=== PATIENT | female | born 1950 | race Caucasian/White ===

== ENCOUNTER 2016-06-22 10:10 | Outpatient (CLI) | payer MEDICARE ==
[2016-06-22 11:52] LABS: #Basophils 0.1 thou/uL (0.0-0.2); #Eosinphils 0.2 thou/uL (0.0-0.7); #Lymphocytes 1.4 thou/uL (1.20-3.40); #Monocytes 0.3 thou/uL (0.11-0.59); %Basophils 1.3 % (0.0-1.0); %Eosinophils 3.1 % (0.0-10.0); %Monocytes 6.9 % (0.0-10.0); Hematocrit 42.3 % (36.0-47.0); Mean Platelet Volume 8.4 fL (7.4-10.4); Red Blood Cell (RBC) Count 4.83 mill/uL (4.20-5.40)
[2016-06-22 11:59] LABS: ALT (SGPT) 18 U/L (0-55); AST (SGOT) 17 U/L (5-34); Alkaline Phosphatase 94 U/L (40-150); Anion Gap 15 mmol/L (10-20); BUN (Urea Nitrogen) 15 mg/dL (9.8-20.1); Calc. Creatinine Clearance 0 mL/min (70-130); Calcium 9.3 mg/dL (7.8-10.44); Carbon Dioxide 29 mmol/L (23-31); Chloride 104 mmol/L (98-107); Estimated GFR-MDRD 81; Globulin 2.7 g/dL (2.4-3.5); LDL Cholesterol, Calculated 158 mg/dL
== END 2016-06-22 10:11 | disposition home or self-care (01) ==
LOC: HPCALD 10:10
PROVIDERS: ATTEND Family Medicine
DX: Z13.6 Encounter for screening for cardiovascular disorders (principal); G35 Multiple sclerosis
CPT/HCPCS: 36415; 80053; 80061; 85025

== ENCOUNTER 2016-09-16 15:20 | Outpatient (CLI) | payer MEDICARE ==
[2016-09-16 15:53] LABS: #Basophils 0.1 thou/uL (0.0-0.2); #Eosinphils 0.2 thou/uL (0.0-0.7); #Lymphocytes 1.5 thou/uL (1.20-3.40); #Monocytes 0.5 thou/uL (0.11-0.59); #Neutrophils 3.3 thou/uL (1.40-6.50); %Eosinophils 3.5 % (0.0-10.0); %Lymphocytes 27.7 % (21.0-51.0); %Monocytes 8.9 % (0.0-10.0); Hemoglobin 12.3 g/dL (12.0-16.0); Mean Corpuscular HGB CONC 33.6 g/dL (32.0-36.0); Mean Corpuscular Hemoglobin 29.5 pg (27.0-31.0); Mean Corpuscular Volume 87.7 fl (81.0-99.0); Mean Platelet Volume 8.7 fL (7.4-10.4); Platelet Count 218 thou/uL (130-400); RBC Distribution Width 12.4 % (11.5-14.5); Red Blood Cell (RBC) Count 4.19 mill/uL (4.20-5.40); White Blood Cell (WBC) Count 5.6 thou/uL (4.8-10.8)
[2016-09-16 16:55] LABS: ALT (SGPT) 22 U/L (8-55); AST (SGOT) 20 U/L (5-34); Albumin 4.2 g/dL (3.4-4.8); Alkaline Phosphatase 94 U/L (40-150); Anion Gap 17 mmol/L (10-20); BUN (Urea Nitrogen) 15 mg/dL (9.8-20.1); Bilirubin, Total 0.7 mg/dL (0.2-1.2); Calc. Creatinine Clearance 0 mL/min (70-130); Calcium 9.4 mg/dL (7.8-10.44); Carbon Dioxide 28 mmol/L (23-31); Chloride 103 mmol/L (98-107); Estimated GFR-MDRD 88; Globulin 2.6 g/dL (2.4-3.5); Glucose 68 mg/dL (80-115); Protein, Total 6.8 g/dL (6.0-8.3); Sodium 144 mmol/L (136-145)
--- NOTE | 2016-09-16 17:35 | RAD ---
CHEST TWO VIEWS 09/16/16 Comparison is made with an 04/05/10 study done at [facility]. The heart is normal in size and the lungs are clear. No infiltrate or effusion was seen. There is no sign of pneumonia. The mediastinum appears normal and the trachea is midline. The bony structures s how no acute change. IMPRESSION: No acute thoracic finding. POS: [facility]
[2016-09-17 12:56] LABS: Bilirubin Negative (Negative); Blood, Urine Trace (Negative); Clarity Clear (Clear); Glucose, Urine (Dipstick) Negative (Negative); Leukocyte Negative (Negative); Nitrite Negative (Negative); Protein, Urine (Dipstick) Negative (Neg-Trace); Urobilinogen 0.2 mg/dL (0.2-1.0); pH, Urine 5.5 (5.0-9.0)
[2016-09-17 13:01] LABS: Bacteria/HPF None Seen HPF (None Seen); Other Microscopic Description C&S SET UP; RBC/HPF 0-3 HPF (0-3); Squamous Epithelial 0-3 HPF (0-3); WBC/HPF None Seen HPF (0-3)
== END 2016-09-16 15:21 | disposition home or self-care (01) ==
LOC: BURRAD 15:20
PROVIDERS: ATTEND Student in an Organized Health Care Education/Training Program
DX: G35 Multiple sclerosis (principal); R53.1 Weakness
CPT/HCPCS: 36415; 71020; 80053; 81001; 85025; 87086

== ENCOUNTER 2016-10-04 12:14 | Outpatient (CLI) | payer MEDICARE ==
--- NOTE | 2016-10-04 15:46 | RAD ---
LEFT HIP TWO VIEW 10/04/16 HISTORY: Left hip pain for 2-3 months. History of falls. COMPARISON: None. FINDINGS: There is moderate to severe narrowing of the left hip joint with erosions of the acetabulum and femo ral head, ring osteophytes and an effusion. No acute fracture or malalignment. IMPRESSION: Moderate to severe osteoarthritic disease of the left hip. POS: [facility]
--- NOTE | 2016-10-04 15:46 | RAD ---
RIGHT HIP TWO VIEWS: History: 66-year-old female with right hip pain for several months. History of multiple falls. History of MS. FINDINGS: Severe right hip joint arthrosis is noted with marked hip joint space narrowing and sclerosis and ex tensive hypertrophic osteophytosis with some flattening and deformity of the humeral head and acetab ulum but no acute fracture or dislocation. IMPRESSION: Marked right hip joint arthrosis. No acute fracture. POS: [facility]
== END 2016-10-04 12:15 | disposition home or self-care (01) ==
LOC: BURRAD 12:14
PROVIDERS: ATTEND Family Medicine
DX: M25.552 Pain in left hip (principal); M25.551 Pain in right hip; M16.0 Bilateral primary osteoarthritis of hip

== ENCOUNTER 2016-10-15 20:00 | Emergency (ER) | payer MEDICARE ==
[2016-10-15] MEDS ORDERED: Ondansetron ODT 4 MG TAB ONE (20:13)
[2016-10-15 20:44] LABS: #Basophils 0.1 thou/uL (0.0-0.2); #Eosinphils 0.1 thou/uL (0.0-0.7); #Lymphocytes 1.3 thou/uL (1.20-3.40); #Monocytes 0.4 thou/uL (0.11-0.59); #Neutrophils 4.6 thou/uL (1.40-6.50); %Basophils 1.3 % (0.0-1.0); %Lymphocytes 19.5 % (21.0-51.0); %Monocytes 5.8 % (0.0-10.0); %Neutrophils 71.5 % (42.0-75.0); Hemoglobin 12.3 g/dL (12.0-16.0); Mean Corpuscular HGB CONC 33.3 g/dL (32.0-36.0); Mean Corpuscular Hemoglobin 28.6 pg (27.0-31.0); Mean Corpuscular Volume 85.9 fl (81.0-99.0); Mean Platelet Volume 7.7 fL (7.4-10.4); Platelet Count 232 thou/uL (130-400); RBC Distribution Width 11.8 % (11.5-14.5); White Blood Cell (WBC) Count 6.4 thou/uL (4.8-10.8)
[2016-10-15 20:47] LABS: Bilirubin Negative (Negative); Clarity Clear (Clear); Glucose, Urine (Dipstick) Negative (Negative); Leukocyte Negative (Negative); Nitrite Negative (Negative); Protein, Urine (Dipstick) Negative (Neg-Trace); Urobilinogen 0.2 mg/dL (0.2-1.0); pH, Urine 5.5 (5.0-9.0)
[2016-10-15 20:48] LABS: Blood, Urine Trace (Negative)
[2016-10-15 20:54] LABS: Bacteria/HPF Rare-Few HPF (None Seen); Crystals/HPF 1+ AMORPH URATES HPF (Negative); RBC/HPF 0-3 HPF (0-3); Squamous Epithelial 0-3 HPF (0-3); WBC/HPF 0-3 HPF (0-3)
[2016-10-15 20:57] LABS: ALT (SGPT) 13 U/L (8-55); AST (SGOT) 12 U/L (5-34); Alkaline Phosphatase 97 U/L (40-150); Anion Gap 17 mmol/L (10-20); BUN (Urea Nitrogen) 17 mg/dL (9.8-20.1); Bilirubin, Total 0.8 mg/dL (0.2-1.2); Calc. Creatinine Clearance 0 mL/min (70-130); Calcium 9.5 mg/dL (7.8-10.44); Carbon Dioxide 26 mmol/L (23-31); Chloride 99 mmol/L (98-107); Estimated GFR-MDRD 90; Globulin 3.3 g/dL (2.4-3.5); Glucose 124 mg/dL (80-115); Lipase 11 U/L (8-78); Potassium 4.6 mmol/L (3.5-5.1); Protein, Total 7.3 g/dL (6.0-8.3); Sodium 137 mmol/L (136-145)
[2016-10-15 20:58] LABS: Troponin I Less than 0.010 ng/mL (< 0.028)
--- NOTE | 2016-10-15 23:18 | RAD ---
PORTABLE CHEST 10/15/16 An AP portable film at 2025 is compared with an 04/05/10 study done at [facility]. The heart is normal in size and the lungs are clear. No infiltrate, effusion, edema, or other acute pulmonary findings were encountered. The mediastinum appears normal and the trachea is midline. IMPRESSION: No significant thoracic finding. POS: [facility]
== END 2016-10-15 21:10 | disposition home or self-care (01) ==
LOC: BURERS 20:00
DX: R11.0 Nausea (principal); T40.4X5A Adverse effect of other synthetic narcotics, initial encounter; M79.9 Soft tissue disorder, unspecified; Z79.899 Other long term (current) drug therapy
CPT/HCPCS: 36415; 51701; 71010; 80053; 81003; 81015; 82553; 83605; 83690; 84484; 85025; 93005; 94760; A4353; Q0162

== ENCOUNTER 2016-12-20 11:12 | Inpatient (IN) | payer MEDICARE ==
[2016-12-21] MEDS ORDERED: HYDROcodone/Acetaminophen 7.5/325 mg Tablet PO PRN (20:55)
[2016-12-21 21:02] VITALS: BMI 21.6
[2016-12-21] MEDS ORDERED: Milk Of Magnesia 30 ML UDCUP PO PRN (21:05)
[2016-12-21] MEDS ORDERED: IMITREX 50 MG PO PRN (21:10)
[2016-12-22] MEDS: Ondansetron ODT 4 MG TAB PO PRN ×2 (03:05→18:03)
[2016-12-22] MEDS: Aspirin 325 MG TAB PO SCH ×2 (08:14→18:04)
[2016-12-22] MEDS: Multivitamin W/ Minerals 1 TAB PO SCH (08:14)
[2016-12-22] MEDS: Docusate 100 MG CAP PO SCH ×2 (08:14→21:14)
[2016-12-22] MEDS: HYDROcodone/Acetaminophen 7.5/325 mg Tablet PO PRN ×3 (10:03→19:44)
[2016-12-22] MEDS: COPAXONE 20 MG/ML SC SCH (21:14)
[2016-12-23] MEDS: Aspirin 325 MG TAB PO SCH ×2 (08:15→17:11)
[2016-12-23] MEDS: Docusate 100 MG CAP PO SCH ×2 (08:16→20:20)
[2016-12-23] MEDS: Multivitamin W/ Minerals 1 TAB PO SCH (08:16)
[2016-12-23] MEDS: HYDROcodone/Acetaminophen 7.5/325 mg Tablet PO PRN (08:24)
[2016-12-23] MEDS: Ondansetron ODT 4 MG TAB PO PRN (11:06)
[2016-12-23] MEDS ORDERED: Magnesium Citrate 300 ML BOT PO SCH (17:15)
[2016-12-23] MEDS: COPAXONE 20 MG/ML SC SCH (20:19)
[2016-12-24] MEDS: Multivitamin W/ Minerals 1 TAB PO SCH (11:54)
[2016-12-24] MEDS: Aspirin 325 MG TAB PO SCH ×2 (14:37→18:18)
[2016-12-24] MEDS: Docusate 100 MG CAP PO SCH ×2 (14:37→21:25)
[2016-12-24] MEDS: Ondansetron ODT 4 MG TAB PO PRN (18:40)
[2016-12-24] MEDS: COPAXONE 20 MG/ML SC SCH (21:10)
--- NOTE | 2016-12-24 21:34 | RAD ---
EXAM: ONE VIEW CHEST ABDOMEN TWO VIEWS 12/24/16 HISTORY: Nausea, constipation. FINDINGS: ONE VIEW CHEST: Normal cardiac silhouette. Pulmonary vessels and hilum are normal. No masses or consolidation. No pn eumothorax or osseous abnormality. ABDOMEN TWO VIEWS: Scattered, moderate fecal material throughout the colon. Correlate for possible constipation. No def inite small bowel obstruction. No pneumoperitoneum. No differential air fluid levels. IMPRESSION: 1. No acute cardiopulmonary process. 2. Moderate fecal material in the colon, correlate for constipation. POS: [facility]
[2016-12-25] MEDS ORDERED: Magnesium Citrate 300 ML BOT PO SCH (08:30)
[2016-12-25] MEDS: Multivitamin W/ Minerals 1 TAB PO SCH (08:54)
[2016-12-25] MEDS: Aspirin 325 MG TAB PO SCH (08:54)
[2016-12-25] MEDS: Docusate 100 MG CAP PO SCH ×2 (08:54→17:48)
[2016-12-25] MEDS ORDERED: Magnesium Citrate 300 ML BOT PO PRN (20:30)
[2016-12-25] MEDS: COPAXONE 20 MG/ML SC SCH (21:35)
[2016-12-26] MEDS: HYDROcodone/Acetaminophen 7.5/325 mg Tablet PO PRN (07:06)
[2016-12-26] MEDS: Multivitamin W/ Minerals 1 TAB PO SCH (08:19)
[2016-12-26] MEDS: Aspirin 325 MG TAB PO SCH ×2 (08:19→16:19)
[2016-12-26] MEDS: Docusate 100 MG CAP PO SCH ×2 (12:29→20:32)
[2016-12-26] MEDS ORDERED: Lorazepam 0.5 MG TAB PO PRN (17:32)
[2016-12-26] MEDS ORDERED: Triple Antibiotic Oint 1 GM Packet TOP PRN (17:40)
[2016-12-26] MEDS: Enoxaparin Sodium 40 MG/0.4 ML SYRINGE SC SCH (18:08)
[2016-12-26] MEDS: COPAXONE 20 MG/ML SC SCH (20:33)
[2016-12-26] MEDS: HYDROcodone/Acetaminophen 5/325 mg Tablet PO PRN (20:34)
[2016-12-26] MEDS ORDERED: Triple Antibiotic Oint 1 GM Packet TOP SCH (21:00)
[2016-12-27] MEDS: HYDROcodone/Acetaminophen 5/325 mg Tablet PO PRN ×2 (05:41→10:16)
[2016-12-27] MEDS ORDERED: Enoxaparin Sodium 40 MG/0.4 ML SYRINGE SC SCH (06:00)
[2016-12-27] MEDS: Docusate 100 MG CAP PO SCH ×2 (09:21→20:50)
[2016-12-27] MEDS: Lisinopril 5 MG TAB PO SCH (09:22)
[2016-12-27] MEDS: Multivitamin W/ Minerals 1 TAB PO SCH (09:24)
[2016-12-27] MEDS: Enoxaparin Sodium 40 MG/0.4 ML SYRINGE SC SCH (17:18)
[2016-12-27] MEDS: COPAXONE 20 MG/ML SC SCH (20:50)
[2016-12-28] MEDS: HYDROcodone/Acetaminophen 5/325 mg Tablet PO PRN (00:07)
[2016-12-28] MEDS: Polyethylene Glycol 3350 17 GM Packet PO SCH (08:53)
[2016-12-28] MEDS: Docusate 100 MG CAP PO SCH ×2 (08:54→20:53)
[2016-12-28] MEDS: Lisinopril 5 MG TAB PO SCH (08:54)
[2016-12-28] MEDS: Multivitamin W/ Minerals 1 TAB PO SCH (08:54)
[2016-12-28 10:19] LABS: Bilirubin Negative (Negative); Blood, Urine Trace (Negative); Clarity Clear (Clear); Glucose, Urine (Dipstick) Negative (Negative); Leukocyte Negative (Negative); Nitrite Negative (Negative); Protein, Urine (Dipstick) Negative (Neg-Trace); Urobilinogen 0.2 mg/dL (0.2-1.0)
[2016-12-28 10:20] LABS: Bacteria/HPF 1+ HPF (None Seen); RBC/HPF 0-3 HPF (0-3); Squamous Epithelial 0-3 HPF (0-3); WBC/HPF 0-3 HPF (0-3)
[2016-12-28] MEDS: Acetaminophen 325 MG TAB PO PRN (13:03)
[2016-12-28] MEDS: Enoxaparin Sodium 40 MG/0.4 ML SYRINGE SC SCH (17:22)
[2016-12-28] MEDS: COPAXONE 20 MG/ML SC SCH (20:57)
[2016-12-29] MEDS: Docusate 100 MG CAP PO SCH ×2 (08:38→21:06)
[2016-12-29] MEDS: Multivitamin W/ Minerals 1 TAB PO SCH (08:39)
[2016-12-29] MEDS: Lisinopril 5 MG TAB PO SCH (08:39)
[2016-12-29] MEDS: Polyethylene Glycol 3350 17 GM Packet PO SCH (08:39)
[2016-12-29] MEDS: Enoxaparin Sodium 40 MG/0.4 ML SYRINGE SC SCH (18:23)
[2016-12-29] MEDS ORDERED: Insulin Regular 300 UNITS/3 ML VIAL ONE (20:43)
[2016-12-29] MEDS: COPAXONE 20 MG/ML SC SCH (21:06)
[2016-12-29] MEDS: Acetaminophen 325 MG TAB PO PRN (21:06)
[2016-12-30 06:20] VITALS: TEMP 98.2
[2016-12-30] MEDS: Docusate 100 MG CAP PO SCH (08:23)
[2016-12-30] MEDS: Lisinopril 5 MG TAB PO SCH (08:23)
[2016-12-30] MEDS: Polyethylene Glycol 3350 17 GM Packet PO SCH (08:24)
[2016-12-30] MEDS: Multivitamin W/ Minerals 1 TAB PO SCH (08:24)
[2016-12-30 08:27] VITALS: BP 133/61
[2016-12-31] MEDS ORDERED: Aspirin 325 MG TAB PO SCH (09:00)
== END 2016-12-30 10:55 | disposition home health service (06) | DRG 561 ==
LOC: BURMED 12-21 20:07
PROVIDERS: ADMIT Family Medicine; ATTEND Family Medicine
DX: Z47.1 Aftercare following joint replacement surgery (principal); I10 Essential (primary) hypertension; Z96.642 Presence of left artificial hip joint; Z23 Encounter for immunization; K59.00 Constipation, unspecified; F41.9 Anxiety disorder, unspecified; R11.0 Nausea
CPT/HCPCS: 74022; 81001; 87086; 90471; 90732; G0009; G8978-GP-CK; G8979-GP-CI; G8987-GO-CJ; G8988-GO-CI; J1650; J1815; Q0162

== ENCOUNTER 2017-01-12 15:47 | Emergency (ER) | payer MEDICARE | END 2017-01-12 16:17 | disposition home or self-care (01) | LOC: BURERS 15:47 | DX: S06.0X0A Concussion without loss of consciousness, initial encounter (principal); I10 Essential (primary) hypertension; G35 Multiple sclerosis; W18.31XA Fall on same level due to stepping on an object, initial encounter | CPT/HCPCS: 99283 ==

== ENCOUNTER 2019-10-21 20:26 | Emergency (ER) | payer MEDICARE ==
[2019-10-21] MEDS ORDERED: Ondansetron PF 4 MG/2 ML Vial ONE (21:01)
[2019-10-21] MEDS ORDERED: diphenhydrAMINE 50 MG/ML VIAL ONE (21:01)
[2019-10-21 21:02] LABS: #Basophils 0.1 thou/uL (0.0-0.2); #Lymphocytes 1.1 thou/uL (1.20-3.40); #Monocytes 0.7 thou/uL (0.11-0.59); #Neutrophils 16.2 thou/uL (1.40-6.50); %Basophils 0.5 % (0.0-1.0); %Eosinophils 0.1 % (0.0-10.0); %Monocytes 4.1 % (0.0-10.0); %Neutrophils 89.4 % (42.0-75.0); Hemoglobin 13.7 g/dL (12.0-16.0); Mean Corpuscular HGB CONC 31.5 g/dL (32.0-36.0); Mean Corpuscular Hemoglobin 28.7 pg (27.0-31.0); Mean Corpuscular Volume 91.3 fL (78.0-98.0); Mean Platelet Volume 9.5 fL (7.4-10.4); Platelet Count 224 thou/uL (130-400); RBC Distribution Width 11.7 % (11.5-14.5); Red Blood Cell (RBC) Count 4.77 mill/uL (4.20-5.40); White Blood Cell (WBC) Count 18.2 thou/uL (4.8-10.8)
[2019-10-21 21:17] LABS: ALT (SGPT) 13 U/L (8-55); AST (SGOT) 18 U/L (5-34); Albumin 4.8 g/dL (3.4-4.8); Alkaline Phosphatase 81 U/L (40-110); Anion Gap 17 mmol/L (10-20); BUN (Urea Nitrogen) 17 mg/dL (9.8-20.1); Bilirubin, Total 1.4 mg/dL (0.2-1.2); CK (CPK) 97 U/L (29-168); Calc. Creatinine Clearance 0 mL/min (70-130); Calcium 10.2 mg/dL (7.8-10.44); Carbon Dioxide 26 mmol/L (23-31); Chloride 104 mmol/L (98-107); Estimated GFR-MDRD 50; Glucose 126 mg/dL (80-115); Potassium 3.7 mmol/L (3.5-5.1); Protein, Total 7.8 g/dL (6.0-8.3); Sodium 143 mmol/L (136-145)
[2019-10-21 21:59] LABS: Bilirubin Negative (Negative); Blood, Urine Negative (Negative); Clarity Slightly Cloudy (Clear); Glucose, Urine (Dipstick) Negative (Negative); Leukocyte Small (Negative); Nitrite Negative (Negative); Protein, Urine (Dipstick) 30 mg/dL (Neg-Trace); Urobilinogen 0.2 mg/dL (Less than 2)
[2019-10-21 22:02] LABS: Bacteria/HPF 1+ HPF (None Seen); Squamous Epithelial 0-3 HPF (0-3); Transitional Epithelial 0-3 HPF (None Seen)
[2019-10-21 22:03] LABS: Broad Cast 0-3 LPF (None Seen); Mucous/LPF 1+ LPF (<2+)
[2019-10-21] MEDS ORDERED: Cephalexin 250 MG CAP ONE (22:14)
== END 2019-10-21 22:20 | disposition home or self-care (01) ==
LOC: BURERS 20:26
DX: T67.5XXA Heat exhaustion, unspecified, initial encounter (principal); N39.0 Urinary tract infection, site not specified; R11.2 Nausea with vomiting, unspecified; I10 Essential (primary) hypertension; G35 Multiple sclerosis; Z79.899 Other long term (current) drug therapy
CPT/HCPCS: 80053; 81003; 81015; 82550; 85025; 87086; 93005; 96361; 96374; 96375; J1200; J2405

== ENCOUNTER 2020-10-04 10:06 | Emergency (ER) | payer MEDICARE, OTHER ==
[2020-10-04 10:47] LABS: #Basophils 0.1 thou/uL (0.0-0.2); #Lymphocytes 1.1 thou/uL (1.20-3.40); #Monocytes 0.4 thou/uL (0.11-0.59); #Neutrophils 4.1 thou/uL (1.40-6.50); %Eosinophils 0.8 % (0.0-10.0); %Lymphocytes 19.9 % (21.0-51.0); %Monocytes 6.9 % (0.0-10.0); %Neutrophils 71.4 % (42.0-75.0); Hemoglobin 14.3 g/dL (12.0-16.0); Mean Corpuscular HGB CONC 33.8 g/dL (32.0-36.0); Mean Corpuscular Hemoglobin 29.6 pg (27.0-31.0); Mean Corpuscular Volume 87.5 fL (78.0-98.0); Mean Platelet Volume 8.7 fL (7.4-10.4); Platelet Count 173 thou/uL (130-400); RBC Distribution Width 11.8 % (11.5-14.5); Red Blood Cell (RBC) Count 4.83 mill/uL (4.20-5.40); White Blood Cell (WBC) Count 5.7 thou/uL (4.8-10.8)
[2020-10-04 10:49] LABS: Bilirubin Negative (Negative); Blood, Urine Trace (Negative); Clarity Clear (Clear); Glucose, Urine (Dipstick) Negative (Negative); Ketone, Urine Negative (Negative); Leukocyte Moderate (Negative); Nitrite Negative (Negative); Protein, Urine (Dipstick) Negative (Neg-Trace); Urobilinogen 0.2 mg/dL (Less than 2)
[2020-10-04] MEDS ORDERED: Meclizine HCl 25 MG TAB ONE (11:00)
[2020-10-04 11:02] LABS: Anion Gap 16 mmol/L (10-20); BUN (Urea Nitrogen) 13 mg/dL (9.8-20.1); Calc. Creatinine Clearance 0 mL/min (70-130); Carbon Dioxide 30 mmol/L (23-31); Chloride 103 mmol/L (98-107); Potassium 4.6 mmol/L (3.5-5.1); Sodium 144 mmol/L (136-145)
[2020-10-04 11:03] LABS: ALT (SGPT) 19 U/L (8-55); AST (SGOT) 17 U/L (5-34); Albumin 4.6 g/dL (3.4-4.8); Alkaline Phosphatase 83 U/L (40-110); Calcium 9.8 mg/dL (7.8-10.44); Globulin 3.2 g/dL (2.4-3.5); Glucose 106 mg/dL (80-115); Protein, Total 7.8 g/dL (5.8-8.1)
[2020-10-04 11:18] LABS: Specific Gravity, Urine 1.003 (1.002-1.036)
[2020-10-04 11:22] LABS: Bacteria/HPF Rare-Few HPF (None Seen); RBC/HPF 0-3 HPF (0-3); Squamous Epithelial 0-3 HPF (0-3); WBC/HPF 0-3 HPF (0-3)
== END 2020-10-04 11:35 | disposition home or self-care (01) ==
LOC: BURERS 10:06
DX: G35 Multiple sclerosis (principal); I10 Essential (primary) hypertension; R29.700 NIHSS score 0
CPT/HCPCS: 70450; 80053; 81003; 81015; 85025; 87086; 93005

== ENCOUNTER 2020-12-22 17:42 | Emergency (ER) | payer MEDICARE | END 2020-12-22 18:20 | disposition home or self-care (01) | LOC: BURERS 17:42 | DX: R53.81 Other malaise (principal); R50.9 Fever, unspecified; Z20.822 Contact with and (suspected) exposure to COVID-19; R05 Cough; I10 Essential (primary) hypertension | CPT/HCPCS: 99283 ==

== ENCOUNTER 2022-08-05 12:48 | Emergency (ER) | payer MEDICARE ==
[2022-08-05] MEDS ORDERED: methylPREDNISolone Sod Succ/PF 125 MG/2 ML VIAL ONE (13:03)
[2022-08-05 13:11] LABS: #Basophils 0.1 thou/uL (0.0-0.2); #Eosinphils 0.1 thou/uL (0.0-0.7); #Lymphocytes 1.5 thou/uL (1.20-3.40); #Monocytes 0.3 thou/uL (0.11-0.59); #Neutrophils 3.1 thou/uL (1.40-6.50); %Basophils 1.1 % (0.0-1.0); %Eosinophils 1.9 % (0.0-10.0); %Lymphocytes 29.3 % (21.0-51.0); %Monocytes 6.3 % (0.0-10.0); %Neutrophils 61.5 % (42.0-75.0); Hemoglobin 12.8 g/dL (12.0-16.0); Mean Corpuscular HGB CONC 32.3 g/dL (32.0-36.0); Mean Corpuscular Hemoglobin 29.4 pg (27.0-31.0); Mean Platelet Volume 8.7 fL (7.4-10.4); Platelet Count 188 10x3/uL (130-400); RBC Distribution Width 11.5 % (11.5-14.5); Red Blood Cell (RBC) Count 4.35 mill/uL (4.20-5.40); White Blood Cell (WBC) Count 5.1 10x3/uL (4.8-10.8)
[2022-08-05 13:27] LABS: ALT (SGPT) 22 U/L (8-55); AST (SGOT) 17 U/L (5-34); Albumin 4.2 g/dL (3.4-4.8); Alkaline Phosphatase 72 U/L (40-110); Anion Gap 11 mmol/L (10-20); BUN (Urea Nitrogen) 16 mg/dL (9.8-20.1); Bilirubin, Total 0.9 mg/dL (0.2-1.2); Calc. Creatinine Clearance 0 mL/min (70-130); Calcium 9.4 mg/dL (7.8-10.44); Carbon Dioxide 30 mmol/L (23-31); Chloride 104 mmol/L (98-107); Estimated GFR 87; Glucose 107 mg/dL (83-110); Potassium 3.7 mmol/L (3.5-5.1); Protein, Total 7.2 g/dL (5.8-8.1); Sodium 141 mmol/L (136-145)
[2022-08-05 13:29] LABS: Bilirubin Negative (Negative); Blood, Urine Trace (Negative); Clarity Clear (Clear); Glucose, Urine (Dipstick) Negative (Negative); Ketone, Urine Negative (Negative); Leukocyte Trace (Negative); Nitrite Negative (Negative); Protein, Urine (Dipstick) Negative (Neg-Trace); Urobilinogen 0.2 mg/dL (Less than 2); pH, Urine 6.5 (5.0-9.0)
[2022-08-05 13:37] LABS: Bacteria/HPF Rare-Few HPF (None Seen); RBC/HPF 0-3 HPF (0-3); Squamous Epithelial 0-3 HPF (0-3); WBC/HPF 0-3 HPF (0-3)
== END 2022-08-05 14:35 | disposition home or self-care (01) ==
LOC: BURERS 12:48
DX: G35 Multiple sclerosis (principal); I10 Essential (primary) hypertension; Z79.899 Other long term (current) drug therapy
CPT/HCPCS: 70450; 71046; 80053; 81003; 81015; 84484; 85025; 93005; 96361; 96374; J2930

== ENCOUNTER 2022-09-24 08:59 | Emergency (ER) | payer MEDICARE ==
[2022-09-24] MEDS ORDERED: methylPREDNISolone Sod Succ/PF 125 MG/2 ML VIAL ONE (09:17)
[2022-09-24 09:39] LABS: #Lymphocytes 0.6 thou/uL (1.20-3.40); #Monocytes 0.4 thou/uL (0.11-0.59); #Neutrophils 7.1 thou/uL (1.40-6.50); %Basophils 0.4 % (0.0-1.0); %Lymphocytes 7.2 % (21.0-51.0); %Monocytes 4.9 % (0.0-10.0); %Neutrophils 87.5 % (42.0-75.0); Hemoglobin 11.6 g/dL (12.0-16.0); Mean Corpuscular Volume 90.8 fl (78.0-98.0); Mean Platelet Volume 8.7 fL (7.4-10.4); Platelet Count 137 10x3/uL (130-400); RBC Distribution Width 11.8 % (11.5-14.5); Red Blood Cell (RBC) Count 3.99 mill/uL (4.20-5.40); White Blood Cell (WBC) Count 8.2 10x3/uL (4.8-10.8)
[2022-09-24 09:54] LABS: ALT (SGPT) 16 U/L (8-55); AST (SGOT) 14 U/L (5-34); Albumin 3.6 g/dL (3.4-4.8); Alkaline Phosphatase 59 U/L (40-110); Anion Gap 11 mmol/L (10-20); BUN (Urea Nitrogen) 13 mg/dL (9.8-20.1); Bilirubin, Total 0.9 mg/dL (0.2-1.2); CK (CPK) 60 U/L (29-168); Calc. Creatinine Clearance 0 mL/min (70-130); Calcium 8.1 mg/dL (7.8-10.44); Carbon Dioxide 25 mmol/L (23-31); Chloride 105 mmol/L (98-107); Estimated GFR 86; Globulin 2.4 g/dL (2.4-3.5); Glucose 110 mg/dL (83-110); Magnesium 1.8 mg/dL (1.6-2.6); Potassium 3.9 mmol/L (3.5-5.1); Sodium 137 mmol/L (136-145)
[2022-09-24 10:09] LABS: Bilirubin Negative (Negative); Blood, Urine Moderate (Negative); Clarity Clear (Clear); Glucose, Urine (Dipstick) Negative (Negative); Ketone, Urine Negative (Negative); Leukocyte Trace (Negative); Nitrite Negative (Negative); Protein, Urine (Dipstick) 30 mg/dL (Neg-Trace); Urobilinogen 0.2 mg/dL (Less than 2); pH, Urine 5.5 (5.0-9.0)
[2022-09-24 10:16] LABS: Bacteria/HPF Rare-Few HPF (None Seen); RBC/HPF 0-3 HPF (0-3); Squamous Epithelial 0-3 HPF (0-3); WBC/HPF 0-3 HPF (0-3)
== END 2022-09-24 10:54 | disposition home or self-care (01) ==
LOC: BURERS 08:59
DX: G35 Multiple sclerosis (principal); R53.1 Weakness; I10 Essential (primary) hypertension; Z79.899 Other long term (current) drug therapy
CPT/HCPCS: 36415; 80053; 81003; 81015; 82550; 83735; 84484; 85025; 93005; 96361; 96374; J2930

== ENCOUNTER 2022-09-26 14:38 | Emergency (ER) | payer MEDICARE ==
[2022-09-26] MEDS ORDERED: Ondansetron PF 4 MG/2 ML Vial ONE (14:57)
[2022-09-26 15:09] LABS: #Basophils 0.1 thou/uL (0.0-0.2); #Monocytes 0.7 thou/uL (0.11-0.59); %Basophils 0.9 % (0.0-1.0); %Eosinophils 0.2 % (0.0-10.0); %Lymphocytes 14.3 % (21.0-51.0); %Monocytes 10.5 % (0.0-10.0); %Neutrophils 74.1 % (42.0-75.0); Hemoglobin 13.5 g/dL (12.0-16.0); Mean Corpuscular HGB CONC 32.6 g/dL (32.0-36.0); Mean Corpuscular Hemoglobin 29.1 pg (27.0-31.0); Mean Corpuscular Volume 89.3 fl (78.0-98.0); Mean Platelet Volume 7.7 fL (7.4-10.4); Platelet Count 178 10x3/uL (130-400); RBC Distribution Width 11.5 % (11.5-14.5); Red Blood Cell (RBC) Count 4.63 mill/uL (4.20-5.40); White Blood Cell (WBC) Count 6.7 10x3/uL (4.8-10.8)
[2022-09-26] MEDS ORDERED: Ondansetron ODT 4 MG TAB ONE (15:09)
[2022-09-26 15:26] LABS: ALT (SGPT) 18 U/L (8-55); AST (SGOT) 19 U/L (5-34); Alkaline Phosphatase 77 U/L (40-110); Anion Gap 12 mmol/L (10-20); BUN (Urea Nitrogen) 10 mg/dL (9.8-20.1); Bilirubin, Total 0.6 mg/dL (0.2-1.2); Calc. Creatinine Clearance 0 mL/min (70-130); Calcium 9.3 mg/dL (7.8-10.44); Carbon Dioxide 28 mmol/L (23-31); Chloride 102 mmol/L (98-107); Estimated GFR 87; Glucose 97 mg/dL (83-110); Magnesium 1.8 mg/dL (1.6-2.6); Sodium 139 mmol/L (136-145)
[2022-09-26] MEDS ORDERED: Potassium Chloride 20 MEQ TAB ONE (15:40)
== END 2022-09-26 16:10 | disposition home or self-care (01) ==
LOC: BURERS 14:38
DX: K52.9 Noninfective gastroenteritis and colitis, unspecified (principal); E87.6 Hypokalemia; I10 Essential (primary) hypertension
CPT/HCPCS: 80053; 83735; 85025; J2405; Q0162

== ENCOUNTER 2022-09-27 08:05 | Emergency (ER) | payer MEDICARE ==
[2022-09-27 08:29] LABS: #Basophils 0.1 thou/uL (0.0-0.2); #Lymphocytes 1.2 thou/uL (1.20-3.40); #Monocytes 0.8 thou/uL (0.11-0.59); #Neutrophils 5.4 thou/uL (1.40-6.50); %Basophils 0.7 % (0.0-1.0); %Eosinophils 0.2 % (0.0-10.0); %Lymphocytes 16.2 % (21.0-51.0); %Monocytes 10.5 % (0.0-10.0); %Neutrophils 72.4 % (42.0-75.0); Hemoglobin 11.8 g/dL (12.0-16.0); Mean Corpuscular HGB CONC 31.9 g/dL (32.0-36.0); Mean Corpuscular Hemoglobin 28.3 pg (27.0-31.0); Mean Corpuscular Volume 88.9 fl (78.0-98.0); Mean Platelet Volume 7.9 fL (7.4-10.4); Platelet Count 166 10x3/uL (130-400); RBC Distribution Width 11.7 % (11.5-14.5); Red Blood Cell (RBC) Count 4.17 mill/uL (4.20-5.40); White Blood Cell (WBC) Count 7.4 10x3/uL (4.8-10.8)
[2022-09-27 08:43] LABS: ALT (SGPT) 15 U/L (8-55); AST (SGOT) 14 U/L (5-34); Albumin 3.4 g/dL (3.4-4.8); Alkaline Phosphatase 60 U/L (40-110); Anion Gap 10 mmol/L (10-20); BUN (Urea Nitrogen) 7 mg/dL (9.8-20.1); Bilirubin, Total 0.6 mg/dL (0.2-1.2); Calc. Creatinine Clearance 0 mL/min (70-130); Calcium 8.3 mg/dL (7.8-10.44); Carbon Dioxide 28 mmol/L (23-31); Chloride 105 mmol/L (98-107); Estimated GFR 86; Globulin 2.5 g/dL (2.4-3.5); Glucose 104 mg/dL (83-110); Magnesium 1.7 mg/dL (1.6-2.6); Potassium 2.8 mmol/L (3.5-5.1); Protein, Total 5.9 g/dL (5.8-8.1); Sodium 140 mmol/L (136-145)
[2022-09-27] MEDS ORDERED: Potassium Chloride 20 MEQ TAB ONE (08:53)
[2022-09-27] MEDS ORDERED: metroNIDAZOLE 500 MG/100 ML BAG ONE (10:10)
[2022-09-27] MEDS ORDERED: NS 0.9% w/ 20 MEQ KCL 1,000 ML ONE (10:10)
[2022-09-27] MEDS ORDERED: cefTRIAXone (ROCEPHIN) 1 GM VIAL ONE (10:30)
[2022-09-27] MEDS ORDERED: Sodium Chloride 0.9% 100 ML ONE (10:30)
[2022-09-27 12:29] LABS: Potassium 3.6 mmol/L (3.5-5.1)
[2022-09-27] MEDS ORDERED: Iopamidol 370 76% 100 ML VIAL ONE (13:26)
== END 2022-09-27 13:33 | disposition short-term general hospital (02) ==
LOC: BURERS 08:05
DX: K52.9 Noninfective gastroenteritis and colitis, unspecified (principal); R55 Syncope and collapse; E87.6 Hypokalemia; I10 Essential (primary) hypertension
CPT/HCPCS: 36415; 71045; 74177; 80053; 83605; 83735; 84484; 85025; 93005; 96361; 96365; 96375; 99284; J0696; J2405; J3480; J3490; Q0162; Q9967